=== PATIENT | female | born 1990 | race American Indian/Alaskan Native ===

== ENCOUNTER 2021-08-29 14:18 | Outpatient (CLI) | payer MEDICAID ==
[2021-08-29 20:02] VITALS: BP 95/51
[2021-08-29] MEDS ORDERED: LACTATED RINGERS 500 ML IV ONE (21:30)
--- NOTE | 2021-08-29 22:13 | Ultrasound Report ---
ULTRASOUND OBSTETRIC LIMITED ULTRASOUND BIOPHYSICAL PROFILE INDICATION / CLINICAL INFORMATION: EFW, SAIMA, Gestational Age, Cervical Length. Clinical Gestational Age (GA) in weeks, days: 23 weeks 0 days TECHNIQUE: Transabdominal. COMPARISON: None available. FINDINGS: BREATHING MOVEMENT = 2 GROSS BODY MOVEMENT = 2 TONE = 2 QUALITATIVE AMNIOTIC FLUID VOLUME = 2 TOTAL BIOPHYSICAL SCORE = 8/8 HEART RATE (beats per minute): 152 AMNIOTIC FLUID INDEX (cm) = not calculated but within normal limits according to [place] police lieutenant (nor mal = 7-24 cm) PRESENTATION: Breech. ADDITIONAL FINDINGS: The cervix measures 3.6 cm and is closed. Biparietal Diameter = 5.4 cm = 22, 3 weeks, days Head Circumference = 20.4 cm = 22, 3 weeks, days Abdominal Circumference = 17.1 cm = 22, 0 weeks, days Femur Length = 4.0 cm = 23, 0 weeks, days Average Ultrasound Age (AUA) = 22, 0 weeks, days Estimated Weight in grams (if calculated): 506 g Estimated Weight Growth Percentile (if calculated): 20% IMPRESSION: 1. Single living intrauterine with Biophysical Score = 8/8 2. Estimated weight of 506 g. 3. Amniotic fluid index is within normal limits. Signer Name: Michel Langford MD Signed: 08/29/2021 10:09 PM Workstation Name: [id number]
== END 2021-08-29 21:53 | disposition home or self-care (01) ==
LOC: EDSTATUS 19:21 → TRG 19:34 → APU 19:35 → TRG 21:53
PROVIDERS: ATTEND Obstetrics & Gynecology
DX: O26.892 Other specified pregnancy related conditions, second trimester (principal); R10.9 Unspecified abdominal pain; Z3A.23 23 weeks gestation of pregnancy
CPT/HCPCS: 76816

== ENCOUNTER 2021-12-14 20:24 | Inpatient (IN) | payer MEDICAID ==
--- NOTE | 2021-12-15 00:36 | Ultrasound Report ---
ULTRASOUND OBSTETRIC INDICATION: Pelvic pain. Evaluate well-being. Clinical Gestational Age (GA): 38.2 weeks TECHNIQUE: Transabdominal. COMPARISON: OB ultrasound performed on 08/29/2021. FINDINGS: There is a single intrauterine with an estimated age of 35.1 weeks based on measurements. Heart Rate: 146 beats per minute. Estimated Weight in grams (if calculated): 2727 Estimated Weight Growth Percentile (if calculated): 9 Position: cephalic. Cervix: closed. Length in cm (if measured): Not measured Placenta: anterior and free of the os. Amniotic Fluid Volume: normal Amniotic Fluid Index (SAIMA) in cm (if calculated): 9.6. Maternal Adnexa: No significant abnormality. IMPRESSION: 1. Single, living intrauterine with estimated sonographic age of 35 weeks, 1 day(s). 2. No significant sonographic abnormality. Signer Name: Timmy Barlow MD Signed: 12/15/2021 12:32 AM Workstation Name: [id number]
--- NOTE | 2021-12-15 01:03 | History and Physical Report ---
History of Present Illness Date of examination: 12/15/21 Date of admission: 12/15/2021 Chief complaint: Pelvic pressure History of present illness: The patient is a 31-year-old at 38-3/7 weeks gestation presents to OB triage reporting pelvic pressure. There is no vaginal bleeding. There is no leaking of fluid. There is good movement. In OB triage, cervical exam was 2 cm dilated. However, OB ultrasound limited revealed that the estimated weight was less than the 10th percentile. As such, this fulfills the contemporary criteria for IUGR. At this gestational age, induction of labor is medically indicated to decrease the risk of stillb irth. The patient is admitted to labor and delivery for induction of labor secondary to IUGR. 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 Social history: no significant social history - Obstetrical History Expected Date of Delivery: 12/26/21 Actual Gestation: 38 Week(s) 3 Day(s) : 3 Para: 2 Hx # Term Pregnancies: 2 Number of Pregnancies: 0 Spontaneous Abortions: 0 Induced : 0 Number of Living Children: 2 Medications and Allergies Allergies Allergy/AdvReac Type Severity Reaction Status Date / Time No Known Allergies Allergy Verified 10/21/19 03:39 Review of Systems All systems: negative - Vital Signs Vital signs: Vital Signs Temp Resp Pulse Ox 98.2 F 14 100 12/14/21 22:14 12/14/21 22:14 12/14/21 22:14 Temp Pulse Resp BP Pulse Ox 98.2 F 76 14 99 12/14/21 22:14 12/15/21 00:56 12/14/21 22:14 12/15/21 00:56 - Physical Exam Breasts: Positive: normal Cardiovascular: Regular rate Lungs: Positive: Normal air movement Abdomen: Positive: normal appearance Genitourinary (Female): Positive: normal external genitalia, normal perenium Vulva: both: normal Vagina: Positive: normal moisture Uterus: Positive: enlarged Adnexa: both: normal Anus/Rectum: Positive: normal perianal skin Extremities: Positive: normal Deep Tendon Reflex Grade: Normal +2 - Obstetrical FHR: category 1 Uterine Contraction Monitor Mode: External Cervical Dilatation: 2 Cervical Effacement Percentage: 20 station: -4 Uterine Contraction Pattern: Irregular Results Result Diagrams: 12/15/21 00:42 All other labs normal. Ultrasound: report reviewed (Estimated weight is in the 9th percentile.), image reviewed Assessment and Plan - Patient Problems (1) 38 weeks gestation of Current Visit: Yes Status: Acute Plan to address problem: care is up-to-date. The patient's current GBS status is unknown. Her only risk factor is having a previous GBS positive culture with a previous . As such we will treat with IV penicillin for intrapartum GBS prophylaxis per 2010 CDC MMWR guidelines. (2) IUGR (intrauterine growth restriction) Current Visit: Yes Status: Acute Plan to address problem: Estimated weight is in the 9th percentile. As such, this fulfills the contemporary criteria for IUGR. At this gestational age, induction of labor is medically indicated to decrease the risk of stillbirth. (3) History of group B Streptococcus (GBS) infection Current Visit: Yes Status: Acute Plan to address problem: The patient's current GBS status is unknown. Her only risk factor is having a previous GBS positive culture with a previous . As such we will treat with IV penicillin for intrapartum GBS prophylaxis per 2010 CDC MMWR guidelines. (4) Encounter for induction of labor Current Visit: Yes Status: Acute Plan to address problem: Ripen cervix with Cook's catheter and misoprostol.
[2021-12-15] MEDS ORDERED: CARBOPROST TROMETHAMINE 250 MCG/1 ML INJ IM PRN (01:09)
[2021-12-15] MEDS ORDERED: ePHEDrine SULFATE 50 MG/1 ML INJ IV PRN ×2 (01:09→17:12)
[2021-12-15] MEDS ORDERED: BUTORPHANOL 2 MG/1 ML INJ IV PRN (01:09)
[2021-12-15] MEDS ORDERED: PENICILLIN G POTASSIUM 5 MIL.UNITS in SODIUM CHLORIDE 0.9% 50 ML IV ONE (01:09)
[2021-12-15] MEDS ORDERED: fentaNYL 100 MCG/2 ML INJ IV PRN (01:09)
[2021-12-15] MEDS ORDERED: METHYLERGONOVINE MALEATE 0.2 MG/ML VIAL IM PRN (01:09)
[2021-12-15] MEDS ORDERED: ACETAMINOPHEN 325 MG TAB PO PRN (01:09)
[2021-12-15] MEDS ORDERED: TERBUTALINE 1 MG/1 ML INJ SUB-Q PRN (01:09)
[2021-12-15] MEDS ORDERED: LACTATED RINGERS 1,000 ML IV SCH (01:15)
[2021-12-15 01:39] LABS: Hematocrit 30.2 % (30.3-42.9); Hemoglobin 10.3 gm/dl (10.1-14.3); Mean Corpuscular HGB Conc 34 % (30-34); Mean Corpuscular Volume 84 fl (79-97); Platelet Count 318 K/mm3 (140-440); Red Blood Count 3.58 M/mm3 (3.65-5.03)
[2021-12-15] MEDS ORDERED: OXYTOCIN DRIP 30 UNITS/500 ML BAG IV SCH ×2 (02:00)
[2021-12-15] MEDS: PENICILLIN G POTASSIUM 2.5 MIL.UNITS in SODIUM CHLORIDE 0.9% 50 ML IV SCH ×2 (06:00→15:45)
--- NOTE | 2021-12-15 14:16 | Progress Note ---
Assessment and Plan A/P IUP@ 38 3/7 weeks IUGR Active labor P Zamudio remove Pitocin Anticipate Subjective - Subjective Date of service: 12/15/21 Principal diagnosis: IUGR, IUP@38 weeks Patient reports: contractions Objective - Vital Signs Vital Signs: Vital Signs - 12hr 12/15/21 12/15/21 12/15/21 02:17 03:04 03:15 Temperature 98.5 F Pulse Rate 65 74 Blood Pressure O2 Sat by Pulse 100 100 Oximetry 12/15/21 12/15/21 12/15/21 03:27 03:53 04:52 Temperature Pulse Rate 74 64 68 Blood Pressure 99/46 O2 Sat by Pulse 99 97 Oximetry 12/15/21 12/15/21 12/15/21 04:53 06:55 07:00 Temperature 97.9 F Pulse Rate 58 L 66 Blood Pressure O2 Sat by Pulse 95 99 Oximetry 12/15/21 12/15/21 12/15/21 07:05 07:10 07:15 Temperature Pulse Rate 65 52 L 54 L Blood Pressure O2 Sat by Pulse 99 98 100 Oximetry 12/15/21 12/15/21 12/15/21 07:20 07:25 07:30 Temperature Pulse Rate 50 L 52 L 63 Blood Pressure O2 Sat by Pulse 99 99 99 Oximetry 12/15/21 12/15/21 12/15/21 07:35 07:40 07:45 Temperature Pulse Rate 66 62 56 L Blood Pressure O2 Sat by Pulse 98 99 98 Oximetry 12/15/21 12/15/21 12/15/21 07:50 07:55 08:00 Temperature Pulse Rate 67 55 L 62 Blood Pressure O2 Sat by Pulse 98 98 98 Oximetry 12/15/21 12/15/21 12/15/21 08:05 08:10 08:15 Temperature Pulse Rate 68 62 66 Blood Pressure O2 Sat by Pulse 98 100 100 Oximetry 12/15/21 12/15/21 12/15/21 08:20 08:25 08:30 Temperature Pulse Rate 53 L 60 70 Blood Pressure O2 Sat by Pulse 97 97 96 Oximetry 12/15/21 12/15/21 12/15/21 08:32 08:35 08:40 Temperature Pulse Rate 70 72 79 Blood Pressure 107/64 O2 Sat by Pulse 94 98 99 Oximetry 12/15/21 12/15/21 12/15/21 08:45 08:50 08:55 Temperature Pulse Rate 82 69 64 Blood Pressure O2 Sat by Pulse 100 98 99 Oximetry 12/15/21 12/15/21 12/15/21 09:00 09:05 09:10 Temperature Pulse Rate 67 81 66 Blood Pressure O2 Sat by Pulse 100 96 99 Oximetry 12/15/21 12/15/21 12/15/21 09:15 09:20 09:25 Temperature Pulse Rate 69 66 71 Blood Pressure O2 Sat by Pulse 99 97 99 Oximetry 12/15/21 12/15/21 12/15/21 09:30 09:35 09:40 Temperature Pulse Rate 55 L 59 L 61 Blood Pressure O2 Sat by Pulse 98 99 99 Oximetry 12/15/21 12/15/21 12/15/21 09:45 09:50 09:55 Temperature Pulse Rate 55 L 66 49 L Blood Pressure O2 Sat by Pulse 98 98 98 Oximetry 12/15/21 12/15/21 12/15/21 10:00 10:05 10:10 Temperature Pulse Rate 50 L 69 66 Blood Pressure O2 Sat by Pulse 97 97 97 Oximetry 12/15/21 12/15/21 12/15/21 10:15 10:20 10:25 Temperature Pulse Rate 51 L 56 L 55 L Blood Pressure O2 Sat by Pulse 96 97 98 Oximetry 12/15/21 12/15/21 12/15/21 10:30 10:35 10:40 Temperature Pulse Rate 59 L 72 58 L Blood Pressure O2 Sat by Pulse 97 98 97 Oximetry 12/15/21 12/15/21 12/15/21 10:45 10:50 10:55 Temperature Pulse Rate 58 L 52 L 68 Blood Pressure O2 Sat by Pulse 98 97 97 Oximetry 12/15/21 12/15/21 12/15/21 11:00 11:05 11:10 Temperature Pulse Rate 56 L 57 L 68 Blood Pressure O2 Sat by Pulse 97 97 98 Oximetry 12/15/21 12/15/21 12/15/21 11:15 11:20 11:25 Temperature Pulse Rate 54 L 57 L 63 Blood Pressure O2 Sat by Pulse 96 97 98 Oximetry 12/15/21 12/15/21 12/15/21 11:30 11:35 11:40 Temperature Pulse Rate 71 75 83 Blood Pressure O2 Sat by Pulse 99 99 98 Oximetry 0812/15/21 12/15/21 12:09 12:14 12:19 Temperature Pulse Rate 68 54 L 53 L Blood Pressure 104/64 O2 Sat by Pulse 98 98 98 Oximetry 12/15/21 12/15/21 12/15/21 12:24 12:29 12:34 Temperature Pulse Rate 55 L 54 L 59 L Blood Pressure O2 Sat by Pulse 100 100 98 Oximetry 12/15/21 12/15/21 12/15/21 12:39 12:44 12:49 Temperature Pulse Rate 63 60 57 L Blood Pressure O2 Sat by Pulse 98 100 100 Oximetry 12/15/21 12/15/21 12/15/21 12:54 12:59 13:04 Temperature Pulse Rate 63 60 54 L Blood Pressure O2 Sat by Pulse 100 99 99 Oximetry 12/15/21 12/15/21 12/15/21 13:09 13:14 13:19 Temperature Pulse Rate 54 L 67 53 L Blood Pressure O2 Sat by Pulse 99 99 99 Oximetry 12/15/21 12/15/21 12/15/21 13:24 13:29 13:34 Temperature Pulse Rate 54 L 60 58 L Blood Pressure O2 Sat by Pulse 99 99 99 Oximetry 12/15/21 12/15/21 12/15/21 13:39 13:44 13:49 Temperature Pulse Rate 71 56 L 60 Blood Pressure O2 Sat by Pulse 98 100 100 Oximetry 12/15/21 12/15/21 12/15/21 13:54 13:59 14:04 Temperature Pulse Rate 66 70 64 Blood Pressure O2 Sat by Pulse 97 99 99 Oximetry 12/15/21 14:09 Temperature Pulse Rate 65 Blood Pressure O2 Sat by Pulse 100 Oximetry - Exam Vulva: right: normal FHR: category 1 Uterine Contraction Monitor Mode: External Cervical Dilatation: 5 Cervical Effacement Percentage: 50 station: -2 Uterine Contraction Frequency (min): irregular Uterine Contraction Pattern: Irregular - Labs Labs: Abnormal Labs 12/15/21 00:42 RBC 3.58 L Hct 30.2 L RDW 17.0 H Laboratory Results - last 24 hr 12/15/21 12/15/21 12/15/21 00:42 00:42 10:32 WBC 8.5 RBC 3.58 L Hgb 10.3 Hct 30.2 L MCV 84 MCH 29 MCHC 34 RDW 17.0 H Plt Count 318 SARS-CoV-2 (PCR) Negative Blood Type O POSITIVE Antibody Screen Negative
--- NOTE | 2021-12-15 17:10 | Progress Note ---
Labor Epidural - Labor Epidural Start Time: 15:42 Stop Time: 15:53 Performed by:: KHADIJAH JACOBS ([facility]) Procedure: Patient is requesting epidural for labor pain. H&P and labs reviewed. Procedure explained, questions answered, consent obtained. Patient placed in sitting position with monitors applied. Timeout performed immediately before start of procedure. Prep/drape in usual sterile fashion. Skin localized 3 mL 1% lidocaine at L[3]-L[4] interspace. 17-gauge Touhy epidural needle advanced to JOSUE with saline at [8] cm. No blood/CSF noted via epidural needle [id number]. Epidural catheter advanced to [14] cm. Negative aspiration for blood and CSF via catheter, negative response to test dose 3 ml 1.5% lidocaine w/ Epi. Sterile dressing applied followed by tape reinforcement. Patient tolerated procedure well. No immediate complications noted.
[2021-12-15] MEDS ORDERED: NALOXONE 0.4 MG/1 ML INJ IV PRN ×2 (17:11→17:12)
[2021-12-15] MEDS ORDERED: PROMETHAZINE 25 MG RECT SUPP PR PRN ×2 (17:11→20:14)
[2021-12-15] MEDS ORDERED: PROMETHAZINE 25 MG TAB PO PRN ×2 (17:11→20:14)
[2021-12-15] MEDS ORDERED: ONDANSETRON 4 MG/2 ML INJ IV PRN ×2 (17:11→20:14)
--- NOTE | 2021-12-15 17:11 | Anesthesia Consultation ---
Anesthesia Consult and Med Hx Date of service: 12/15/21 - Airway Anesthetic Teeth Evaluation: Good ROM Head & Neck: Adequate Mental/Hyoid Distance: Adequate Mallampati Class: Class II Intubation Access Assessment: Probably Good - Pulmonary Exam CTA: Yes - Cardiac Exam Cardiac Exam: RRR - Pre-Operative Health Status ASA Pre-Surgery Classification: ASA2 Proposed Anesthetic Plan: Epidural - Pulmonary Hx Smoking: No Hx Asthma: No COPD: No Hx Sleep Apnea: No - Cardiovascular System Hx Hypertension: No - Central Nervous System Hx Seizures: No CVA: No Hx Psychiatric Problems: No - Endocrine Hx Renal Disease: No Hx Liver Disease: No Hx Insulin Dependent Diabetes: No Hx Hypothyroidism: No Hx Hyperthyroidism: No - Hematic Hx Anemia: No Hx Sickle Cell Disease: No - Other Systems Hx Alcohol Use: No Hx Substance Use: No Hx Cancer: No Hx Obesity: No - Additional Comments Anesthesia Medical History Comments: no hx of anesthetic complications
[2021-12-15] MEDS ORDERED: fentaNYL-BUPIV 2 MCG/ML-0.125% 200 MCG/100 ML BAG EPIDURAL SCH (18:00)
--- NOTE | 2021-12-15 20:01 | Procedure Note ---
OB Delivery Note - Delivery Date of Delivery: 12/15/21 Estimated blood loss: 100cc - Vaginal Delivery position: OA Intrapartum events: none Delivery induction: other (Zamudio balloon) Delivery augmentation: pitocin Delivery monitor: external FHT Route of delivery: Delivery placenta: spontaneous Delivery cord: nuchal cord Episiotomy: none Delivery laceration: none Delivery comments: Pt. completely dilated and pushing. Delivery of a live female over an intact perineum. Nuchal cord reduced. place on patient's abdomen. Cord clamped and cut after a 1 minute delayed. Weight 5lbs 15 ozs. Apgars 8 at 1minute and 9 at 5 minutes. Placenta delivered spontaneously and intact. Uterus firm. No laceration. Pt. tolerated delivery well. EBL 100ml. Baby with pt. instable condition. - Infant A at 1 minute: 8 at 5 minutes: 9 Infant Gender: Female
[2021-12-15] MEDS ORDERED: WITCH HAZEL/ GLYCERIN PAD TP PRN (20:14)
[2021-12-15] MEDS ORDERED: diphenhydrAMINE 25 MG CAP PO PRN (20:14)
[2021-12-15] MEDS ORDERED: MAGNESIUM HYDROXIDE (MOM) ORAL LIQD UDC PO PRN (20:14)
[2021-12-15] MEDS ORDERED: LANOLIN/ZINC/DIMETHICONE (LANSINOH) 7 GM TP PRN (20:14)
[2021-12-15] MEDS ORDERED: oxyCODONE /ACETAMINOPHEN 5-325MG TAB PO PRN (20:18)
[2021-12-16] MEDS: IBUPROFEN 600 MG TAB PO SCH ×3 (00:07→11:56)
[2021-12-16 07:45] LABS: Hematocrit 29.4 % (30.3-42.9); Hemoglobin 9.7 gm/dl (10.1-14.3)
--- NOTE | 2021-12-16 10:19 | Progress Note ---
Assessment and Plan PPD #1 A: S/P Asymptomatic anemia P: Continue routine pp orders Fe rx D/C home tomm if stable per pt request Subjective - Subjective Date of service: 12/16/21 Principal diagnosis: s/p Patient reports: appetite normal, voiding normally, pain well controlled, ambulating normally : doing well, bottle feeding Objective - Vital Signs Latest vital signs: Vital Signs Temp Pulse Resp BP Pulse Ox Pulse Ox 12/16/21 09:57 98 12/16/21 08:38 97.9 F 83 18 106/49 98 12/16/21 06:19 18 12/16/21 05:19 18 12/16/21 04:29 97.8 F 86 18 99/52 100 12/16/21 01:07 18 12/16/21 00:07 18 12/15/21 23:55 97.7 F 66 18 82/35 99 12/15/21 23:20 100 12/15/21 21:17 62 0 L 12/15/21 21:06 210 H 89 12/15/21 20:59 80 L 12/15/21 20:51 125 H 0 L 12/15/21 20:46 82 0 L 12/15/21 20:39 80 L 12/15/21 20:32 39 L 73 L 12/15/21 20:30 62 93 12/15/21 20:26 61 100 12/15/21 20:21 56 L 100 12/15/21 20:16 65 100 12/15/21 20:11 64 100 12/15/21 20:06 59 L 100 12/15/21 20:01 65 99 12/15/21 20:00 98.4 F 12/15/21 19:56 63 100 12/15/21 19:55 61 78/41 12/15/21 19:51 69 100 12/15/21 19:46 65 100 12/15/21 19:41 76 100/57 100 12/15/21 19:35 56 L 100 12/15/21 19:30 53 L 100 12/15/21 19:25 52 L 100 12/15/21 19:20 65 100 12/15/21 19:15 53 L 100 12/15/21 19:10 54 L 100 12/15/21 19:05 97.4 F L 61 20 100 12/15/21 19:02 100 12/15/21 19:00 76 100 12/15/21 18:55 65 100 12/15/21 18:50 70 100 12/15/21 18:45 60 100 12/15/21 18:40 55 L 100 12/15/21 18:39 51 L 113/69 12/15/21 18:35 51 L 100 12/15/21 18:30 52 L 100 12/15/21 18:25 58 L 100 12/15/21 18:20 51 L 100 12/15/21 18:15 65 100 12/15/21 18:10 54 L 100 12/15/21 18:05 51 L 100 12/15/21 18:00 51 L 99 12/15/21 17:55 59 L 100 12/15/21 17:50 67 100 12/15/21 17:45 55 L 100 12/15/21 17:40 64 100 12/15/21 17:35 55 L 99 12/15/21 17:30 59 L 100 12/15/21 17:25 58 L 100 12/15/21 17:20 52 L 100 12/15/21 17:15 93 H 100 12/15/21 17:10 53 L 100 12/15/21 17:07 71 93/51 12/15/21 17:05 54 L 90/53 99 12/15/21 17:03 54 L 90/53 12/15/21 17:01 57 L 92/55 12/15/21 17:00 67 86/54 99 12/15/21 16:58 59 L 101/48 12/15/21 16:55 64 91/57 99 12/15/21 16:53 69 89/54 12/15/21 16:51 66 90/51 12/15/21 16:50 58 L 99 12/15/21 16:49 64 91/55 12/15/21 16:47 57 L 92/51 12/15/21 16:45 60 89/54 98 12/15/21 16:43 58 L 89/52 12/15/21 16:41 47 L 86/49 12/15/21 16:40 57 L 98 12/15/21 16:39 51 L 86/52 12/15/21 16:37 55 L 88/50 12/15/21 16:35 61 89/48 98 08/04/22 16:33 63 88/51 12/15/21 16:31 54 L 89/54 12/15/21 16:30 58 L 97 12/15/21 16:29 67 84/47 12/15/21 16:27 62 87/51 12/15/21 16:26 51 L 91/52 12/15/21 16:25 59 L 99 12/15/21 16:24 57 L 112/45 12/15/21 16:22 63 97/50 12/15/21 16:20 57 L 99 12/15/21 16:18 53 L 112/55 12/15/21 16:15 59 L 92/51 99 12/15/21 16:11 59 L 98/53 12/15/21 16:10 59 L 93/52 99 12/15/21 16:07 62 96/54 12/15/21 16:05 67 99/57 100 12/15/21 16:04 75 96/55 12/15/21 16:02 62 103/57 12/15/21 16:00 68 100 12/15/21 15:58 65 109/55 12/15/21 15:56 68 111/53 12/15/21 15:55 61 99 12/15/21 15:54 66 114/65 12/15/21 15:51 82 114/57 12/15/21 15:50 67 118/57 99 12/15/21 15:48 99 H 118/61 12/15/21 15:45 85 119/55 93 12/15/21 15:42 73 107/72 12/15/21 15:40 77 124/61 100 12/15/21 15:19 92 H 98 12/15/21 15:18 68 94 12/15/21 15:14 58 L 99 12/15/21 15:09 65 99 12/15/21 15:04 67 100 12/15/21 15:01 67 90 12/15/21 14:59 69 100 12/15/21 14:54 64 100 12/15/21 14:49 76 100 12/15/21 14:44 60 98 12/15/21 14:39 59 L 95 12/15/21 14:34 74 100 12/15/21 14:33 63 94 12/15/21 14:29 65 100 12/15/21 14:27 65 92 12/15/21 14:24 67 100 12/15/21 14:23 98.2 F 12/15/21 14:19 70 99 12/15/21 14:18 72 126/61 12/15/21 14:14 58 L 98 12/15/21 14:09 65 100 12/15/21 14:04 64 99 12/15/21 13:59 70 99 12/15/21 13:54 66 97 12/15/21 13:49 60 100 12/15/21 13:44 56 L 100 12/15/21 13:39 71 98 12/15/21 13:34 58 L 99 12/15/21 13:29 60 99 12/15/21 13:24 54 L 99 12/15/21 13:19 53 L 99 12/15/21 13:14 67 99 12/15/21 13:09 54 L 99 12/15/21 13:04 54 L 99 12/15/21 12:59 60 99 12/15/21 12:54 63 100 12/15/21 12:49 57 L 100 12/15/21 12:44 60 100 12/15/21 12:39 63 98 12/15/21 12:34 59 L 98 12/15/21 12:29 54 L 100 12/15/21 12:24 55 L 100 12/15/21 12:19 53 L 98 12/15/21 12:14 54 L 98 12/15/21 12:09 98.3 F 68 104/64 98 12/15/21 11:40 83 98 12/15/21 11:35 75 99 12/15/21 11:30 71 99 12/15/21 11:25 63 98 12/15/21 11:20 57 L 97 12/15/21 11:15 54 L 96 12/15/21 11:10 68 98 12/15/21 11:05 57 L 97 12/15/21 11:00 56 L 97 12/15/21 10:55 68 97 12/15/21 10:50 52 L 97 12/15/21 10:45 58 L 98 12/15/21 10:40 58 L 97 12/15/21 10:35 72 98 12/15/21 10:30 59 L 97 12/15/21 10:25 55 L 98 12/15/21 10:20 56 L 97 Intake and Output 12/15/21 12/16/21 12/16/21 22:59 06:59 14:59 Intake Total 4.266 830 Output Total 600 350 Balance -595.734 480 Intake: IV 4.266 PITOCin/NS 30 UNIT/500ML 4.266 30 units In 500 ml @ 2 mls/hr IV TITR CUBA Rx#: [id number] Oral 350 Intake, Free Water 480 Output: Urine 600 350 Indwelling Catheter 600 Void 350 Other: Total, Intake Amount 350 Total, Output Amount 200 350 # Voids Void 1 Estimated Blood Loss 100 - Exam Breasts: Present: normal Abdomen: Present: normal appearance, soft Vulva: both: normal Uterus: Present: normal, firm, fundal height below umbilicus Extremities: Present: normal - Labs Labs: Abnormal lab results 12/16/21 Range/Units 07:30 Hgb 9.7 L (10.1-14.3) gm/dl Hct 29.4 L (30.3-42.9) %
[2021-12-16] MEDS: FERROUS SULFATE 325 MG TAB PO SCH (10:43)
--- NOTE | 2021-12-16 14:50 | Discharge Summary ---
Providers - Providers Date of Admission: 12/15/21 19:00 Date of discharge: 12/16/21 Attending physician: LOLY ALVARADO Primary care physician: LOLY ALVARADO Hospitalization Reason for admission: induction of labor Delivery: Episiotomy: none Laceration: none Other procedures: none complications: none Discharge diagnosis: IUP at term delivered baby: female Hospital course: Pt presented to L&D with c/o pelvic pressure. She was diagnosed with IUGR and admitted for an IOL. Pt had a w/o pp complications. She was d/c'd home in stable condition. See H&P, delivery summary, and pp notes. Condition at discharge: Stable Disposition: 01 HOME / SELF CARE / HOMELESS Plan - Discharge Medications Prescriptions: Ferrous Sulfate [Feosol 325 MG tab] 325 mg PO QDAY #30 tablet Ibuprofen [Motrin 600 MG tab] 600 mg PO Q6HR PRN #20 tablet PRN Reason: Menstrual Cramps - Provider Discharge Summary Activity: routine, no sex for 6 weeks, no heavy lifting 4 weeks, no strenuous exercise Diet: routine Instructions: routine Additional instructions: [] Smoking cessation referral if applicable(refer to patient education folder for contact #) [] Refer to [facility] Booklet Call your doctor immediately for: * Fever > 100.5 * Heavy vaginal bleeding ( >1 pad per hour) * Severe persistent headache * Shortness of breath * Reddened, hot, painful area to leg or breast * Drainage or odor from incision. * Keep incision clean and dry at all times and follow doctor's instructions regarding bathing/showering - Follow up plan Follow up: LOLY ALVARADO MD [Primary Care Provider] - 6 Weeks
[2021-12-17] MEDS: IBUPROFEN 600 MG TAB PO SCH ×3 (00:27→16:10)
[2021-12-17 08:43] VITALS: BP 107/53
[2021-12-17] MEDS: FERROUS SULFATE 325 MG TAB PO SCH (10:32)
== END 2021-12-17 16:26 | disposition home or self-care (01) | DRG 775 ==
LOC: TRG 20:24 → APU 20:25 → LD 12-15 08:18 → TRG 12-15 19:00 → LD 12-15 19:00 → OB 12-15 23:07
PROVIDERS: ADMIT Obstetrics & Gynecology; ATTEND Obstetrics & Gynecology
PROC: 10E0XZZ Delivery of Products of Conception, External Approach (ICD-10-PCS; principal; 2021-12-15)
PROC: 0U7C7ZZ Dilation of Cervix, Via Natural or Artificial Opening (ICD-10-PCS; 2021-12-15)
PROC: 3E0R3BZ Introduction of Anesthetic Agent into Spinal Canal, Percutaneous Approach (ICD-10-PCS; 2021-12-15)
PROC: 00HU33Z Insertion of Infusion Device into Spinal Canal, Percutaneous Approach (ICD-10-PCS; 2021-12-15)
DX: O36.5930 Maternal care for other known or suspected poor fetal growth, third trimester, not applicable or unspecified (principal); Z37.0 Single live birth; Z3A.38 38 weeks gestation of pregnancy; Z20.822 Contact with and (suspected) exposure to COVID-19; O69.81X0 Labor and delivery complicated by cord around neck, without compression, not applicable or unspecified
CPT/HCPCS: 36415; 59025; 76816; 85014; 85018; 85027; 86850; 86900; 86901; G0378; J3490; J2540; J2590; J7120; U0003